=== PATIENT | male | born 1985 | race Hispanic/Latino ===

== ENCOUNTER 2021-10-29 13:33 | Emergency (ER) | payer OTHER ==
[~2021-10-29] VITALS: Ht 177.8 cm; Wt 93.0 kg
[2021-10-29] MEDS ORDERED: CIPR500T10 PO (14:16)
[2021-10-29] MEDS ORDERED: AZITHROMYCIN 250 MG TABLET PO ONE (14:30)
[2021-10-29] MEDS ORDERED: CEFTRIAXONE 500MG VIAL IM SCH (14:30)
[2021-10-29 15:02] VITALS: BP 122/64
[2021-10-29 15:16] LABS: APPEARANCE,URINE CLEAR (CLEAR); BILIRUBIN,URINE NEGATIVE (NEGATIVE); COLOR,URINE YELLOW (YELLOW); GLUCOSE, URINE (UA) NEGATIVE (NEGATIVE); KETONES,URINE NEGATIVE (NEGATIVE); LEUKOCYTE ESTERASE ,URINE MODERATE (NEGATIVE); NITRATE,URINE NEGATIVE (NEGATIVE); OCCULT BLOOD,URINE TRACE-INTACT (NEGATIVE); PROTEIN,URINE NEGATIVE (NEGATIVE); UROBILINOGEN,URINE 0.2 mg/dL (0.2-1.0)
[2021-10-29 16:28] LABS: BACTERIA,URINE Few /HPF (None Seen); SQUAMOUS EPITHELIAL CELL,UR Rare /HPF (0-2)
[2021-10-29 23:00] LABS: RAPID PLASMA REAGIN REACTIVE (NONREACTIVE)
[2021-10-29 23:14] LABS: RAPID PLASMA REAGIN TITER REACTIVE 1:2 (NONREACTIVE)
[2021-11-01 20:09] LABS: HERPES SIMPLEX VIRUS-1 BY PCR Negative (Negative); HERPES SIMPLEX VIRUS-2 BY PCR Negative (Negative)
== END 2021-10-29 15:10 | disposition home or self-care (01) ==
LOC: EDH 13:33
DX: Z11.3 Encounter for screening for infections with a predominantly sexual mode of transmission (principal); N48.29 Other inflammatory disorders of penis
CPT/HCPCS: 99283; 86780; 86592; 87077 ×2; 87088; 87186 ×2; 87529; 87797; 86701; 87390; 87486; 81001; 96372; 36415; 87070; J0696